=== PATIENT | female | born 1985 | race Two or more races ===

== ENCOUNTER 2017-03-01 23:42 | Emergency (ER) | payer SELFPAY ==
[~2017-03-01] VITALS: Ht 154.9 cm; Wt 79.4 kg
--- NOTE | 2017-03-02 01:39 | NUR ---
32 YO FEMALE BB SELF C/O LOWER ABD PAIN WITH NAUSEA/ VOMIT, FEVER X 2 DAYS. PATIENT SKIN WARM AND DRY, RESP EVEN AND UNLABORED. PATIENT GOWNED,PLACED ON OPHTHALMIC SURGICAL ASSISTANT. WHEN ASKED FOR PATIENT TO GIVE URINE SAMPLE PATIENT WAS UNABLE TO. AWAITING ORDERS FROM PROVIDER, WILL CONTINUE TO MONITOR
--- NOTE | 2017-03-02 01:39 | NUR ---
PATIENT AMBULATED TO ER BED WITH STEADY GAIT
[2017-03-02] MEDS ORDERED: ONDANSETRON HCL/PF 4 MG/2 ML VIAL ONE (01:41)
[2017-03-02] MEDS ORDERED: MORPHINE SULFATE INJ 4 MG/ML DISP.SYRIN ONE (01:42)
[2017-03-02] MEDS ORDERED: IV NS 0.9% 1,000 ML BAG IV ONE (02:00)
[2017-03-02] MEDS ORDERED: MORPHINE SULFATE INJ 2 MG/ML DISP.SYRIN IV ONE (02:00)
[2017-03-02] MEDS ORDERED: ACETAMINOPHEN 325 MG TABLET PO ONE (02:00)
[2017-03-02] MEDS ORDERED: ONDANSETRON HCL/PF 4 MG/2 ML VIAL IVP ONE (02:00)
[2017-03-02 02:01] LABS: HEMATOCRIT 41 % (33-45); HEMOGLOBIN 14.1 g/dL (11.5-14.8); LYMPHOCYTES # (AUTO) 0.8 /CMM (0.8-4.8); LYMPHOCYTES % (AUTO) 5.9 % (20.0-44.0); MEAN CORPUSCULAR HEMOGLOBIN 30 PG (26.0-33.0); MEAN CORPUSCULAR HGB CONC 35 g/dl (31.0-36.0); MEAN CORPUSCULAR VOLUME 87 fL (82-100); MONOCYTES # (AUTO) 0.4 /CMM (0.1-1.30); MONOCYTES % (AUTO) 3.3 % (2.0-12.0); NEUTROPHILS # (AUTO) 11.5 /CMM (1.8-8.9); NEUTROPHILS % (AUTO) 90.8 % (43.0-81.0); PLATELET COUNT (AUTO) 308 /CMM (150-450); RDW COEFFICIENT OF VARIATION 13.6 (11.5-15.0); RED BLOOD CELL COUNT(AUTO) 4.69 MIL/uL (4.0-5.2); WHITE BLOOD COUNT (AUTO) 12.7 K/uL (4.3-11.0)
[2017-03-02] MEDS ORDERED: ACETAMINOPHEN ES 500 MG TABLET ONE (02:01)
[2017-03-02 02:15] LABS: CALCIUM, SERUM 9.5 mg/dL (8.5-10.1); CREATININE 1.2 mg/dL (0.6-1.3); POTASSIUM 2.9 mmol/L (3.5-5.1)
[2017-03-02 02:20] LABS: ALBUMIN 3.4 g/dL (3.4-5.0); BILIRUBIN,DIRECT 0.1 mg/dL (0.0-0.2); BILIRUBIN,TOTAL 0.3 mg/dL (0.2-1.0)
[2017-03-02 02:34] LABS: INR 0.92 (0.87-1.13)
--- NOTE | 2017-03-02 02:39 | NUR ---
REPORT REC'D FROM REGINA CAMPBELL FOR [facility].
--- NOTE | 2017-03-02 02:40 | NUR ---
CXR IS AT THE BEDSIDE. PT LEFT FOR CT.
--- NOTE | 2017-03-02 03:15 | NUR ---
URINE SAMPLE OBTAINED AND SENT TO LAB.
[2017-03-02] MEDS ORDERED: POTASSIUM CHLORIDE 20 MEQ TAB.PRT.SR PO ONE ×3 (03:30→04:19)
[2017-03-02 03:32] LABS: APPEARANCE,URINE CLOUDY (CLEAR); BILIRUBIN,URINE 1+ (NEGATIVE); BLOOD, URINE 3+ Ery/uL (NEGATIVE); KETONES,URINE 2+ (NEGATIVE); LEUKOCYTE ESTERASE ,URINE NEGATIVE (NEGATIVE); NITRITE, URINE NEGATIVE (NEGATIVE); PROTEIN,URINE 2+ mg/dl (NEGATIVE); UGLUCOSE NEGATIVE (NEGATIVE); UROBILINOGEN,URINE 0.2 EU/dL (0.2)
[2017-03-02 03:33] LABS: COLOR,URINE DARK YELLOW (YELLOW)
[2017-03-02 03:37] LABS: BACTERIA,URINE Moderate /HPF (None Seen); RBC,URINE 81-100 /HPF (0-2); SQUAMOUS EPITHELIAL CELL,UR Few /HPF (None Seen)
--- NOTE | 2017-03-02 04:26 | NUR ---
PT APPEARS TO BE RESTING COMFORTABLY. OVERHEAD LIGHTS WERE TURNED OFF. PT WAS C/O HEADACHE. WILL CONTINUE TO MONITOR THE PT.
--- NOTE | 2017-03-02 05:22 | NUR ---
Patient discharged to for transport in stable condition by private auto home. Written and verbal after care instructions given. Patient verbalizes understanding of instruction. IV removed. Catheter intact and site benign. Pressure and 4x4 applied to site. No bleeding noted. Pt ambulatory with a steady gait. VSS, NAD noted on DC. Denies complaint on DC.
[2017-03-02 05:24] VITALS: BP 127/66
== END 2017-03-02 05:25 | disposition home or self-care (01) ==
LOC: ER 23:44
DX: N83.202 Unspecified ovarian cyst, left side (principal)
CPT/HCPCS: 36415; 71045; 74176; 76856; 80048; 80076; 81001; 83690; 84703; 85025; 85730; 87086; 96361; 96374; 96375; 99285; A4606; J2270; J2405; Z7610; 81000-TC